=== PATIENT | female | born 1975 | race Caucasian/White ===

== ENCOUNTER 2019-07-15 22:28 | Emergency (ER) | payer MEDICAID ==
[~2019-07-15] VITALS: Ht 149.9 cm; Wt 99.0 kg
[~2019-07-15 22:28] MED LIST: ACET-3161 GT
[2019-07-16] MEDS ORDERED: MAGNESIUM/ALUMINUM HYDROXIDE/SIMETHICONE 30ML UDC PO STA (00:33)
[2019-07-16] MEDS ORDERED: METOCLOPRAMIDE HCL 10MG TABLET PO ONE (00:45)
[2019-07-16 01:18] LABS: CHLORIDE 104 mEq/L (98-107)
[2019-07-16 02:16] LABS: BASOPHILS % 0.5 % (0.0-2.0); EOSINOPHILS % 2.4 % (0.0-5.0); HEMATOCRIT. 37.5 % (36.0-48.0); HEMOGLOBIN. 13.1 g/dL (12.0-16.0); LYMPHOCYTES % 28.5 % (20.0-50.0); MEAN CORPUSCULAR HEMOGLOBIN 31.4 pg (28.0-32.0); MEAN CORPUSCULAR VOLUME 90.1 fL (81.0-99.0); MEAN PLATELET VOLUME 11.3 fl (7.4-10.4); MONOCYTES % 6.7 % (2.0-8.0); NEUTROPHILS % 61.9 % (40.0-76.0); PLATELET 168 x1000/uL (130-400); RED BLOOD CELL COUNT 4.17 mill/uL (4.2-5.4); RED CELL DISTRIBUTION WIDTH 12.8 % (11.6-14.6)
[2019-07-16 03:06] VITALS: BP 114/67
== END 2019-07-16 03:09 | disposition home or self-care (01) ==
LOC: ER 22:28
DX: K21.9 Gastro-esophageal reflux disease without esophagitis (principal); R51 Headache; R00.2 Palpitations; E03.9 Hypothyroidism, unspecified; Z85.9 Personal history of malignant neoplasm, unspecified; Z98.890 Other specified postprocedural states; Z87.19 Personal history of other diseases of the digestive system
CPT/HCPCS: 36415; 71045; 80053; 83690; 84484; 85025; 93005; 99285; J8597